=== PATIENT | female | born 1980 | race Two or more races ===

== ENCOUNTER 2024-11-16 10:05 | Day surgery (SDC) | payer BC, SELFPAY ==
--- NOTE | 2024-11-13 06:17 | EKG_ITS ---
[facility] Test Date: 2024-11-13 Pat Name: TIFFANY MENA Department: Room: - Gender: Female Youth Associate: JOSEPH : 1980 Requested By: Juanito Hassan Order Number: [id number] Reading MD: Juanito Hassan Measurements Intervals [place] Rate: 71 P: 37 LA: 147 QRS: 16 QRSD: 93 T: -1 QT: 390 QTc: 424 Interpretive Statements SINUS RHYTHM WITH SINUS ARRHYTHMIA LOW QRS VOLTAGE IN PRECORDIAL LEADS [QRS DEFLECTION < 1.0 mV IN CHEST LEADS] INCOMPLETE RIGHT BUNDLE BRANCH BLOCK [90+ ms QRS DURATION, TERMINAL R IN V1/V2, 40+ ms S IN I/aVL/V4/V5/V6] POSSIBLE ANTERIOR MYOCARDIAL INFARCTION , OF INDETERMINATE AGE [30 ms Q WAVE IN V3/V4, OR R < 0.2 mV IN V4] No previous ECG available for comparison /[id number]/S0/[id number]
[2024-11-13 07:09] VITALS: BMI 34.3
[2024-11-13 07:52] LABS: Collection Type, Urine Clean Catch
[2024-11-13 08:35] LABS: Basophils % (Auto) 0 % (0-2.5); Eosinophils # (Auto) 0.1 Thou/mm3 (0.0-0.5); Eosinophils % (Auto) 1 % (0-10); Hematocrit 45.5 % (36.0-46.0); Hemoglobin 15.1 g/dL (12.0-16.0); Immature Granulocytes % (Auto) 0 % (0-0); Immature Granulocytes Auto 0.02 Thou/mm3 (0.00-0.00); Lymphocytes # (Auto) 2.4 Thou/mm3 (1.0-4.8); Lymphocytes % (Auto) 29 % (10-50); Mean Corpuscular HGB Conc 33.2 g/dl (31.0-37.0); Mean Corpuscular Hemoglobin 28.3 pg (25.0-35.0); Mean Corpuscular Volume 85 fL (80-100); Monocytes # (Auto) 0.4 Thou/mm3 (0.0-0.8); Monocytes % (Auto) 5 % (0-12); Neutrophils # (Auto) 5.5 Thou/mm3 (1.8-7.7); Neutrophils % (Auto) 65 % (37-80); Nucleated Red Blood Cell % 0 /100 WBC (0); Platelet Count 263 Thou/mm3 (140-440); RDW Standard Deviation 42.7 fL (36.4-46.3); Red Blood Count 5.33 Miln/mm3 (4.00-5.20); White Blood Count 8.4 Thou/mm3 (3.6-11.0)
[2024-11-13 08:39] LABS: Bilirubin,Urine Negative (Negative); Blood,Urine 2+ (Negative); Clarity,Urine Clear (Clear/Hazy); Color,Urine Yellow (Lt Yel-Yel); Glucose, Urine Trace (Negative); HCG Qualitative,Urine Negative; Ketones,Urine Negative (Negative); Leukocyte Esterase,Urine Positive (Negative); Nitrite,Urine Negative (Negative); PH,Urine 5.5 (5.0-7.0); Protein,Urine Trace (Neg - Trace); RBC,Urine 9 /hpf (0-3); Specific Gravity,Urine 1.028 (1.001-1.035); Squamous Epithelial Cell,Urine 6 /hpf (0-5); Urobilinogen,Urine Negative mg/dL (0.0-1.0); WBC,Urine 26 /hpf (0-5)
[2024-11-13 08:48] LABS: Alanine Aminotransferase 11 U/L (10-49); Albumin, Serum 4.4 gm/dL (3.5-5.0); Albumin/Globulin Ratio 1.6 (1.2-2.2); Alkaline Phosphatase 61 U/L (46-116); Anion Gap 8 (7-16); Aspartate Amino Transferase 12 U/L (0-34); BUN/Creatinine Ratio 19 Ratio (12-20); Bilirubin,Total 0.5 mg/dL (0.3-1.2); Blood Urea Nitrogen 17 mg/dL (9-23); Calcium 8.9 mg/dL (8.3-10.6); Calcium (Corrected) 8.9 mg/dL (8.5-10.1); Carbon Dioxide 27.7 mMol/L (20.0-31.0); Chloride 105 mMol/L (98-107); Creatinine (Component) 0.9 mg/dL (0.6-1.3); Globulin 2.8 gm/dL (2.3-3.5); Glucose 123 mg/dL (74-106); Osmolality,Calculated 283 (275-295); Potassium 3.9 mMol/L (3.4-5.1); Sodium 141 mMol/L (136-145); Total Protein 7.2 gm/dL (5.7-8.2); eGFR > 60 See Note
[2024-11-13 09:03] LABS: Partial Thromboplastin Time 28.7 Seconds (22.0-36.0)
[2024-11-16] VITALS (9 sets, daily range): BP systolic 119–157; BP diastolic 67–85; PULSE 72–105; RESP 12–20; TEMP 36.2–36.6; O2SAT 95–100; BMI 33.8
--- NOTE | 2024-11-16 10:50 | SUR.PREOP ---
Patient expressed gratitude for prayer before their procedure.
--- NOTE | 2024-11-16 14:10 | SUR.PHASEI ---
pt received from OR in recovery bay 4. pt asleep but responds to voice, breathing unlabored on oxymask 8l. v/s stable. pt dressing to upper back cdi. report received from Jarad REYES and Dr. Acevedo.
--- NOTE | 2024-11-16 14:11 | ESOP_ITS ---
Date of Procedure 11/16/24 Pre Op Diagnosis Recurrent large lipoma left back. Post Op Diagnosis Same. Lipoma was intramuscular Procedure Excision of large into muscular lipoma measuring 15 cm x 10 cm x 6 cm. On 11/16/2024 Findings This patient had a previous excision of lipoma over 10 years ago. The lipoma became a recurrent in the scapular region. There was significant amount of scar tissue however it did not look like elastofibroma. The lipoma was extending into the latissimus dorsi muscle. It was near the scapula. Procedure Description This patient was interviewed in the preop area. The site and side were identified. Risk benefits and alternatives discussed with the patient and informed consent is obtained. She has a risk of bleeding infection and possible future recurrence. After that patient was taken to the operating room. General anesthesia was administered in a satisfactory manner and then patient is positioned in the prone position on the operating room table. The back was prepped and draped in usual manner. IV antibiotics were given. Local anesthesia 0.5% Marcaine with epinephrine is used as an adjunct. The previous scar was excised and the incision was carried through the skin and subtenons tissue. Subcutaneous portion of the lipoma was identified. It is an extensive lipoma with multiple lobulations. It was dissected from the subcutaneous tissue into the fascia and into the the intramuscular space. Hemostasis was achieved. The lipoma was easily excised circumferentially. The excision cavity is examined and there were still extensions of the lipoma found they were individually identified and dissected and removed. After that excision cavity was carefully examined there is no evidence of any residual lipoma. Hemostasis is achieved. The subtenons tissues approximated by 2-0 Vicryl interrupted sutures skin by 2-0 nylon interrupted sutures. Sterile dressing was applied. Estimated loss of blood less than 20 cc patient taught the procedure very well. Anesthesia GETA Drains None. Implants None. Pathology / specimen Other (Recurrent large lipoma back and skin scar) Estimated Blood Loss 15 Condition Stable Disposition PACU Surgeon Juanito Hassan MD Surgical Staff Operation Date: 11/16/24 13:00 Case Staff Anesthesiologist: Momo Acevedo surgical scrub technologist Jarad REYES electrician maintenance
--- NOTE | 2024-11-16 15:00 | SUR.PHASEII ---
pt able to tolerate jello without difficulty swallowing or nausea/vomiting.
[2024-11-16] MEDS: fentaNYL CIT INJ 50 mCg/ML AMP 2ML 25 MCG IV (15:02)
--- NOTE | 2024-11-16 15:40 | SUR.PHASEII ---
pt awake and alert, breathing unlabored on room air. v/s stable. pt dressing to upper back cdi. pt able to ambulate to wheelchair with steady gait. d/c instructions given with mother Ivania in room, all questions answered. pt d/c via wheelchair with all belongings.
== END 2024-11-16 15:40 | disposition home or self-care (01) ==
PROVIDERS: Anesthesiology; PCP Internal Medicine; Referring Provider Specialist; Visit Provider Specialist
PROC: (CPT 21931; principal; 2024-11-16 12:45)
DX: D17.1 Benign lipomatous neoplasm of skin and subcutaneous tissue of trunk (principal); Z01.810 Encounter for preprocedural cardiovascular examination
CPT/HCPCS: 21931; 36415; 80053; 81001; 81025; 85025; 85730; 93005; A4217; A4649; J0131; J1100; J1885; J2250; J2405; J2704; J3010; J3490; J0665